=== PATIENT | male | born 1970 | race Caucasian/White ===

== ENCOUNTER 2023-04-26 09:35 | Emergency (ER) | payer OTHER, SELFPAY ==
[2023-04-26] VITALS (23 sets, daily range): BP systolic 127–147; BP diastolic 77–92; PULSE 53–176; RESP 13–28; TEMP 36.6; O2SAT 95–99; BMI 33.4
--- NOTE | 2023-04-26 09:47 | ED_ITS ---
HPI - Chest Pain General Chief Complaint: Chest Pain Stated Complaint: CHEST PAIN Time Seen by Provider: 04/26/23 09:40 History of Present Illness HPI narrative: 52-year-old male presents to the emergency department for chest pain. It woke him up at 3:00 this morning and it has been there continuously since, almost 7 hours. Its across his upper chest that goes to his left shoulder and into the left upper arm. It feels like a burning sensation. No fever cough injury or unusual activity. He has never had pain like this before and has never had CAD issues. He states his watch alerted him that his heart rate was fast. He had atrial fibrillation about 10 years ago but had cardiac ablation and has had no issues since then. Related Data Home Medications Medication Instructions Recorded Confirmed duloxetine 60 mg capsule,delayed 60 mg PO DAILY 04/26/23 04/26/23 release (Cymbalta) fentanyl 25 mcg/hr transdermal 1 patch transdermal Q72H 04/26/23 04/26/23 patch oxycodone 5 mg tablet 5 mg PO DAILY 04/26/23 04/26/23 Allergies Allergy/AdvReac Type Severity Reaction Status Date / Time No Known Drug Allergies Allergy Verified 04/26/23 09:49 Review of Systems ROS Narrative A ten point review of systems is negative except as noted above. PFSH PFSH Social History Smoking status: Never smoker Exam Narrative Exam Narrative: Nurses note and vital signs reviewed and patient is not hypoxic. General: The patient appears well and in no apparent distress. Patient is resting comfortably on cart. Skin: Warm, dry, no pallor noted. There is no rash noted. Head: Normocephalic, atraumatic Eye: Normal conjunctiva, no drainage Ears, Nose, Mouth, and Throat: oral mucosa is moist. Nares patent. Cardiovascular: Regular Rate and Rhythm, not tachycardic Respiratory: Patient is in no distress, no accessory muscle use, lungs are charisse ar to auscultation, no wheezing, rales or rhonchi Back: non-tender GI: Soft and nontender Musculoskeletal: The patient has no evidence of calf tenderness, no pitting edema, symmetrical pulses noted bilaterally Neurological: A&O, normal speech Psychiatric: Cooperative Constitutional Vital Signs, click to edit/add: Last Vital Signs Temp 97.8 F 04/26/23 09:45 Pulse 53 L 04/26/23 12:20 Resp 15 04/26/23 12:20 BP 131/81 04/26/23 12:01 Pulse Ox 97 04/26/23 12:20 O2 Del Method Nasal Cannula 04/26/23 10:19 O2 Flow Rate 2 04/26/23 10:19 Course Vital Signs Vital signs: Vital Signs Pulse Rate 81 04/26/23 09:44 Respiratory Rate 14 04/26/23 09:44 Temperature 97.8 F 04/26/23 09:45 Pulse Rate 53 L 04/26/23 12:20 Respiratory Rate 15 04/26/23 12:20 Blood Pressure 131/81 04/26/23 12:01 Pulse Oximetry 97 04/26/23 12:20 Oxygen Delivery Method Nasal Cannula 04/26/23 10:19 Oxygen Delivery Flow Rate 2 04/26/23 10:19 MDM - Chest Pain MDM Narrative Medical decision making narrative: The patient's workup including 2 troponins and a CTA is negative. His reports that he had symptoms just like this for about 2 years about 13 years ago and it was finally diagnosis achalasia. He had surgery and they were told that it would last 7 to 10 years and it has been 11 years since that surgery. It is possible that his symptoms are due to achalasia. There is no evidence of CAD or pulmonary embolism or other acute coronary syndrome and he is able to be discharged home. Treatment diagnosis and follow-up were discussed thoroughly. Differential Diagnosis Differential diagnosis: Likely pneumothorax, unstable angina pectoris, atypical chest pain, st elevation myocardial infarction, costochondritis and chest pain Lab Data Attestation: I reviewed the patient's lab results. Labs: Lab Results 04/26/23 04/26/23 Range/Units 09:53 11:53 WBC 6.5 (4.0-11.0) 10^3/uL RBC 4.98 (4.70-6.10) 10^6/uL Hgb 14.8 (14.0-18.0) g/dL Hct 44.1 (42.0-54.0) % MCV 88.6 (80.0-94.0) fL MCH 29.7 (25.9-34.0) pg MCHC 33.6 (29.9-35.2) g/dL RDW 11.9 (11.0-15.0) % Plt Count 227 (150-450) 10^3/uL MPV 10.5 (9.5-13.5) fL Neut % (Auto) 67.2 (43.0-75.0) % Lymph % (Auto) 21.0 (20.5-60.0) % [place] % (Auto) 7.8 (1.7-12.0) % Eos % (Auto) 2.9 (0.9-7.0) % Baso % (Auto) 0.8 (0.2-2.0) % Neut # (Auto) 4.4 (1.4-6.5) 10^3/uL Lymph # (Auto) 1.4 (1.2-3.8) 10^3/uL [place] # (Auto) 0.5 (0.3-0.8) 10^3/uL Eos # (Auto) 0.2 (0.0-0.7) 10^3/uL Baso # (Auto) 0.1 (0.0-0.1) 10^3/uL Abs Immat Gran (auto) 0.02 (0.00-0.03) 10^3/uL Imm/Tot Granulo (auto) 0.3 (0.0-0.5) % Sodium 138 (136-145) mmol/L Potassium 4.1 (3.5-5.1) mmol/L Chloride 100 (98-107) mmol/L Carbon Dioxide 30.5 (21.0-32.0) mmol/L Anion Gap 11.6 BUN 20.0 H (7.0-18.0) mg/dL Creatinine 0.99 (0.70-1.30) mg/dL Est GFR ( Amer) >60 (>=60) Est GFR (Non-Af Amer) >60 (>=60) BUN/Creatinine Ratio 20.2 Glucose 87 (74-106) mg/dL Calcium 9.1 (8.5-10.1) mg/dL Troponin I High Sens 4.2 5.2 (4.0-76.1) pg/mL Imaging Data CT scan - chest: Radiologist's impression: ITS Impressions Chest X-Ray 04/26/23 09:47 IMPRESSION: No acute cardiopulmonary process Electronically authenticated by: RICKEY LITTLE Date: 04/26/2023 10:58 Chest CTA 04/26/23 10:30 IMPRESSION: 1. No pulmonary embolism. 2. No acute infiltrates. 3. 6 mm nodule within left lower lobe. This was 5 mm on 11/17/2017 which favors benign etiology given the slow growth. 4. No acute or suspicious findings to account for patient's symptoms. Electronically authenticated by: BRAD OSPINA Date: 04/26/2023 11:50 ECG Data Attestation: I personally reviewed and interpreted this ECG as follows: (EKG on my interpretation shows sinus rhythm with a rate of 81 and no acute changes.) Heart Score History: Moderately Suspicious ECG: Normal Age: >45-<65 years Risk Factors: No Risk Factors Troponin: <Normal Limit Total Heart Score Recommendations & Risks:: 2 Discharge Plan Discharge Chief Complaint: Chest Pain Clinical Impression: Chest pain Patient Disposition: Home, Self-Care Time of Disposition Decision: 12:48 Condition: Good Mode of Transportation: Private Vehicle Prescriptions / Home Meds: No Action fentanyl 25 mcg/hr patch 72 hour 1 patch transdermal Q72H duloxetine [Cymbalta] 60 mg capsule,delayed release(DR/EC) 60 mg PO DAILY oxycodone 5 mg tablet 5 mg PO DAILY Instructions: Chest Pain (ED) Stand Alone Forms: Portal Instructions Referrals: Physician,Non-Staff, MD [Primary Care Provider] - 1 week
--- NOTE | 2023-04-26 09:47 | ECG_ITS ---
The [facility] Test Date: 2023-04-26 Pat Name: GLORIA BHATTI Department: Room: - Gender: Male [employer]ground Official: : 1970 Requested By: [id number] Order Number: [id number] Reading MD: FRAN ANTOINE Measurements Intervals [place] Rate: 81 P: 65 UT: 164 QRS: 7 QRSD: 84 T: 61 QT: 366 QTc: 403 Interpretive Statements 1100 Sinus rhythm 9110 normal ECG No previous ECG available for comparison Electronically Signed On 04-26-2023 23:24:56 EST by FRAN ANTOINE
--- NOTE | 2023-04-26 09:47 | XR_ITS ---
The [address] [address] Patient Name: GLORIA BHATTI MRN: [id number] date: 1970 Sex: M Assigned Patient Location: ER Current Patient Location: ER Accession/Order Number: [id number] Exam Date: 04/26/2023 10:15 Report Date: 04/26/2023 10:58 At the request of: JAVIER MELO Procedure: XR chest 1V EXAMINATION: XR chest 1V HISTORY: CP COMPARISON: 11/17/2017 TECHNIQUE: Portable FINDINGS: LUNGS: No significant pulmonary parenchymal abnormalities. VASCULATURE: No increased pulmonary vasculature. PLEURA: No pneumothorax, effusion, or pleural thickening. CARDIAC: No cardiomegaly or cardiac silhouette abnormality. MEDIASTINUM: No visible mass or adenopathy. BONES: No fracture or visible bone lesion. OTHER: Negative. XR/XR chest 1V IMPRESSION: No acute cardiopulmonary process Electronically authenticated by: RICKEY LITTLE Date: 04/26/2023 10:58
[2023-04-26] MEDS: ASPIRIN 81 MG TAB.CHEW 324 MG PO (10:00)
[2023-04-26] MEDS: NITROGLYCERIN 0.4 MG BOTTLE SL (10:00)
[2023-04-26 10:01] LABS: Basophils Absolute Auto 0.1 10^3/uL (0.0-0.1); Basophils Percent Auto 0.8 % (0.2-2.0); Eosinophils Absolute Auto 0.2 10^3/uL (0.0-0.7); Eosinophils Percent Auto 2.9 % (0.9-7.0); Hematocrit 44.1 % (42.0-54.0); Hemoglobin 14.8 g/dL (14.0-18.0); Immature Granulocytes Abs Auto 0.02 10^3/uL (0.00-0.03); Immature Granulocytes Pct Auto 0.3 % (0.0-0.5); Lymphocytes Absolute Auto 1.4 10^3/uL (1.2-3.8); Mean Corpuscular HGB Conc 33.6 g/dL (29.9-35.2); Mean Corpuscular Hemoglobin 29.7 pg (25.9-34.0); Mean Corpuscular Volume 88.6 fL (80.0-94.0); Mean Platelet Volume 10.5 fL (9.5-13.5); Monocytes Absolute Auto 0.5 10^3/uL (0.3-0.8); Monocytes Percent Auto 7.8 % (1.7-12.0); Neutrophils Absolute Auto 4.4 10^3/uL (1.4-6.5); Neutrophils Percent Auto 67.2 % (43.0-75.0); Platelet Count 227 10^3/uL (150-450); Red Blood Count 4.98 10^6/uL (4.70-6.10); Red Cell Distribution Width 11.9 % (11.0-15.0); White Blood Count 6.5 10^3/uL (4.0-11.0)
[2023-04-26 10:27] LABS: Anion Gap 11.6; BUN Creatinine Ratio 20.2; Calcium 9.1 mg/dL (8.5-10.1); Carbon Dioxide 30.5 mmol/L (21.0-32.0); Chloride 100 mmol/L (98-107); Estimated GFR (African America >60 (>=60); Estimated GFR (Non-African Ame >60 (>=60); Glucose 87 mg/dL (74-106); Potassium 4.1 mmol/L (3.5-5.1); Sodium 138 mmol/L (136-145); Troponin I High Sensitivity 4.2 pg/mL (4.0-76.1)
--- NOTE | 2023-04-26 10:30 | CT_ITS ---
The [address] [address] Patient Name: GLORIA BHATTI MRN: [id number] date: 1970 Sex: M Assigned Patient Location: ER Current Patient Location: ER Accession/Order Number: [id number] Exam Date: 04/26/2023 11:01 Report Date: 04/26/2023 11:50 At the request of: JAVIER MELO Procedure: CT angio chest EXAMINATION: CT angio chest HISTORY: Chest pain, rule out PE , tachycardia COMPARISON: CT chest abdomen pelvis without contrast 11/17/2017 TECHNIQUE: Multi-planar CT images were created with IV contrast. Axial, Coronal, and Sagittal images. Dose reduction techniques were achieved by using automated exposure control and/or adjustment of mA and/or kV according to patient size and/or use of iterative reconstruction technique. 3-D reconstruction was performed on a separate workstation. FINDINGS: VASCULATURE: No pulmonary embolism or abnormal opacity. LUNGS: 6 monitor nodule within left lower lobe adjacent the major fissure at level of hilum. No infiltrates. PLEURA: No mass, effusion, or pneumothorax. JOSEF: No mass or adenopathy. MEDIASTINUM: No mass or adenopathy. CARDIAC: No enlargement, pericardial effusion, or pericardial thickening. AORTA: No aneurysm or dissection. CHEST WALL: No mass or axillary adenopathy. BONES: No bone lesion or fracture. LIMITED ABDOMEN: No suspicious findings. Limited images of the upper abdomen. OTHER: Negative. CT/CT angio chest IMPRESSION: 1. No pulmonary embolism. 2. No acute infiltrates. 3. 6 mm nodule within left lower lobe. This was 5 mm on 11/17/2017 which favors benign etiology given the slow growth. 4. No acute or suspicious findings to account for patient's symptoms. Electronically authenticated by: BRAD OSPINA Date: 04/26/2023 11:50
--- NOTE | 2023-04-26 11:12 | PC.NURSE ---
monitoring engineer continues
[2023-04-26 12:20] LABS: Troponin I High Sensitivity 5.2 pg/mL (4.0-76.1)
== END 2023-04-26 13:27 | disposition home or self-care (01) ==
PROVIDERS: Emergency Provider Emergency Medicine
DX: R07.9 Chest pain, unspecified (principal); R91.1 Solitary pulmonary nodule
CPT/HCPCS: 36415; 71045; 71275; 80048; 84484; 85025; 93005; 99285; Q9967